=== PATIENT | female | born 1965 | race Caucasian/White ===

== ENCOUNTER 2017-09-20 11:58 | Emergency (ER) | payer MEDICAID, OTHER ==
[~2017-09-20] VITALS: Ht 157.5 cm; Wt 60.8 kg
--- NOTE | 2017-09-20 12:15 | NUR ---
RITO PA, PT PULLED OUT HER PICC LINE LAST NIGHT. HERE FOR PICC LINE PLACEMENT, NAD NOTED, VSS, RESP EVEN AND UNLABORED. WAITING FOR MD MCKEON.
[2017-09-20] MEDS ORDERED: MORPHINE SULFATE INJ 2 MG/ML DISP.SYRIN IV ONE (12:30)
[2017-09-20] MEDS ORDERED: ONDANSETRON HCL/PF 4 MG/2 ML VIAL IV ONE (12:30)
--- NOTE | 2017-09-20 12:30 | NUR ---
IV ACCESS OBTAINED, BLOOD SENT TO LAB, MEDS GIVEN ORDERED, PT PUT ON MONITOR.
[2017-09-20] MEDS ORDERED: MORPHINE SULFATE INJ 4 MG/ML DISP.SYRIN ONE (12:38)
[2017-09-20] MEDS ORDERED: ONDANSETRON HCL/PF 4 MG/2 ML VIAL ONE (12:38)
--- NOTE | 2017-09-20 12:42 | NUR ---
BRANDY ACCESS CALLED,SPOKE WITH IVAN
[2017-09-20 12:47] LABS: BASOPHILS # (AUTO) 0.1 /CMM (0.0-0.2); HEMATOCRIT 25 % (33-45); HEMOGLOBIN 8.6 g/dL (11.5-14.8); LYMPHOCYTES # (AUTO) 1.8 /CMM (0.8-4.8); LYMPHOCYTES % (AUTO) 29.9 % (20.0-44.0); MEAN CORPUSCULAR HGB CONC 34 g/dl (31.0-36.0); MEAN CORPUSCULAR VOLUME 89 fL (82-100); MONOCYTES # (AUTO) 0.6 /CMM (0.1-1.30); MONOCYTES % (AUTO) 10.3 % (2.0-12.0); NEUTROPHILS # (AUTO) 3.1 /CMM (1.8-8.9); NEUTROPHILS % (AUTO) 53.8 % (43.0-81.0); PLATELET COUNT (AUTO) 553 /CMM (150-450); RDW COEFFICIENT OF VARIATION 13.6 (11.5-15.0); RED BLOOD CELL COUNT(AUTO) 2.83 MIL/uL (4.0-5.2); WHITE BLOOD COUNT (AUTO) 5.9 K/uL (4.3-11.0)
[2017-09-20 12:51] LABS: CREATININE 0.6 mg/dL (0.6-1.3); POTASSIUM 3.9 mmol/L (3.5-5.1)
--- NOTE | 2017-09-20 13:23 | NUR ---
Mansi perales in [facility] - 09/20/17 at 1413 by SCOTT Patient discharged to home in stable condition. Written and verbal after care instructions given. Patient verbalizes understanding of instruction.
--- NOTE | 2017-09-20 13:41 | NUR ---
TIME OUT DONE PICC SPECIALIST AND RN AT BS.
--- NOTE | 2017-09-20 13:50 | NUR ---
JANAK CALLED ETA 30 MIN.
--- NOTE | 2017-09-20 14:13 | NUR ---
TYLER SILVERMAN RN PHONE [phone]
[2017-09-20] MEDS ORDERED: ACET-868 PO (14:16)
[2017-09-20] MEDS ORDERED: LIDO30AD10 TP (14:16)
[2017-09-20] MEDS ORDERED: ASPI-1169 PO (14:16)
[2017-09-20] MEDS ORDERED: HYDR500C PO (14:16)
[2017-09-20] MEDS ORDERED: MAGN400O6 PO (14:16)
[2017-09-20] MEDS ORDERED: FERR325T28 PO (14:16)
[2017-09-20] MEDS ORDERED: VANC1VIA2 IV (14:16)
[2017-09-20] MEDS ORDERED: HYDR-552 PO (14:16)
[2017-09-20] MEDS ORDERED: PANT40TA2 PO (14:16)
[2017-09-20] MEDS ORDERED: DOCU-141 PO (14:16)
[2017-09-20] MEDS ORDERED: L.AC460C PO (14:16)
[2017-09-20 14:59] VITALS: BP 111/64
== END 2017-09-20 15:31 ==
LOC: ER 12:02
DX: Z45.2 Encounter for adjustment and management of vascular access device (principal); D64.9 Anemia, unspecified; L03.115 Cellulitis of right lower limb; K21.9 Gastro-esophageal reflux disease without esophagitis; Z79.82 Long term (current) use of aspirin
CPT/HCPCS: 36415; 71045-TC; 80048-TC; 85025-TC; 93971-TC; A4606; C1751; J2270; J2405; Z7610

== ENCOUNTER 2021-05-05 02:40 | Emergency (ER) | payer OTHER ==
[~2021-05-05] VITALS: Ht 165.1 cm; Wt 61.2 kg
[~2021-05-05 02:40] MED LIST: ACET-868 PO; ASPI-1169 PO; DOCU-141 PO; FERR325T28 PO; HYDR-4384 PO; HYDR500C PO; L.AC460C PO; LIDO30AD10 TP; MAGN400O6 PO; PANT40TA2 PO; VANC1VIA2 IV
[2021-05-05 02:45] VITALS: BP 155/84
--- NOTE | 2021-05-05 02:47 | NUR ---
Pt bibself c/o not sleeping x3 nights because of anxiety. A/OX4. TOLERATING R/A WELL WITH NO SOB. AMBULATORY.
[2021-05-05] MEDS ORDERED: LORAZEPAM 1 MG TABLET PO ONE (03:00)
[2021-05-05] MEDS ORDERED: LORAZEPAM 1 MG TABLET ONE (03:06)
--- NOTE | 2021-05-05 03:10 | NUR ---
Patient discharged to home in stable condition. Written and verbal after care instructions given. Patient verbalizes understanding of instruction. PT AMBULATORY
== END 2021-05-05 03:10 | disposition home or self-care (01) ==
LOC: ER 02:45
DX: F41.9 Anxiety disorder, unspecified (principal); G47.00 Insomnia, unspecified; K21.9 Gastro-esophageal reflux disease without esophagitis; Z79.899 Other long term (current) drug therapy; Z79.82 Long term (current) use of aspirin

== ENCOUNTER 2021-09-12 11:38 | Emergency (ER) | payer OTHER ==
[~2021-09-12] VITALS: Ht 165.1 cm; Wt 63.5 kg
[2021-09-12 11:45] VITALS: BP 166/89
--- NOTE | 2021-09-12 11:48 | NUR ---
BIBS vaginal mass x 4 days. Rates pain 5/10. Abdomen soft and non-distended. Will continue to monitor the patient.
[2021-09-12] MEDS ORDERED: CEFI400C PO (12:00)
[2021-09-12] MEDS ORDERED: CLIN300C12 PO (12:00)
--- NOTE | 2021-09-12 12:09 | NUR ---
Patient discharged to home in stable condition. Written and verbal after care instructions given. Patient verbalizes understanding of instruction.
== END 2021-09-12 12:10 | disposition home or self-care (01) ==
LOC: ER 11:44
DX: N75.1 Abscess of Bartholin's gland (principal); N90.69 Other specified hypertrophy of vulva; K21.9 Gastro-esophageal reflux disease without esophagitis; E43 Unspecified severe protein-calorie malnutrition; L03.115 Cellulitis of right lower limb; Z59.9 Problem related to housing and economic circumstances, unspecified; Z79.2 Long term (current) use of antibiotics; Z79.82 Long term (current) use of aspirin

== ENCOUNTER 2021-09-15 01:50 | Emergency (ER) | payer OTHER ==
[~2021-09-15] VITALS: Ht 170.2 cm; Wt 74.8 kg
[~2021-09-15 01:50] MED LIST changes: +CEFI400C PO; +CLIN300C12 PO
[2021-09-15 02:05] VITALS: BP 138/74
[2021-09-15] MEDS ORDERED: SULFAMETH/TRIMETH 800/160 MG 1 UDTAB TABLET ONE (03:00)
[2021-09-15] MEDS ORDERED: SULFAMETH/TRIMETH 800/160 MG 1 UDTAB TABLET PO ONE (03:00)
[2021-09-15] MEDS ORDERED: SULF1TAB48 PO (03:02)
--- NOTE | 2021-09-15 03:09 | NUR ---
Patient discharged to home in stable condition. Written and verbal after care instructions given. Patient verbalizes understanding of instruction.
== END 2021-09-15 03:54 | disposition home or self-care (01) ==
LOC: ER 01:55
DX: N75.1 Abscess of Bartholin's gland (principal); K21.9 Gastro-esophageal reflux disease without esophagitis; Z79.2 Long term (current) use of antibiotics; Z79.82 Long term (current) use of aspirin; Z79.899 Other long term (current) drug therapy

== ENCOUNTER 2021-10-03 22:30 | Emergency (ER) | payer OTHER ==
[~2021-10-03] VITALS: Ht 165.1 cm; Wt 63.5 kg
[~2021-10-03 22:30] MED LIST changes: +SULF1TAB48 PO
[2021-10-04 00:26] VITALS: BP 145/62
--- NOTE | 2021-10-04 00:26 | NUR ---
BIBS SEEKING MEDICAL CONSULTATION ABOUT GLAND ON RIGHT SIDE OF VAGINA. PT A/OX4. TOLERATING R/A WELL WITH NO SOB
--- NOTE | 2021-10-04 00:33 | NUR ---
Mansi perales in ED - 10/04/21 at 0155 by CELESTE Patient discharged to home in stable condition. RX Written and verbal after care instructions given. Patient verbalizes understanding of instruction. PT ambulatory with a steady gait
--- NOTE | 2021-10-04 00:33 | NUR ---
Patient discharged to home in stable condition. Written and verbal after care instructions given. Patient verbalizes understanding of instruction. PT ambulatory with a steady gait
== END 2021-10-04 00:33 | disposition home or self-care (01) ==
LOC: ER 22:32
DX: K21.9 Gastro-esophageal reflux disease without esophagitis (principal); E46 Unspecified protein-calorie malnutrition; T79.A Traumatic compartment syndrome; Z68.23 Body mass index [BMI] 23.0-23.9, adult; Z79.891 Long term (current) use of opiate analgesic; Z79.899 Other long term (current) drug therapy